=== PATIENT | female | born 1985 | race Caucasian/White ===

== ENCOUNTER 2017-04-23 18:22 | Emergency (ER) | payer MEDICAID ==
[~2017-04-23] VITALS: Ht 154.9 cm; Wt 57.2 kg
[2017-04-23 18:42] VITALS: BP 114/80
[2017-04-23] MEDS ORDERED: IBUPROFEN 400 MG TAB PO ONE (18:50)
[2017-04-23] MEDS ORDERED: IBUPROFEN 400 MG TAB ONE (19:00)
--- NOTE | 2017-04-23 19:53 | NUR ---
PT TAKEN TO BED 4
--- NOTE | 2017-04-23 20:05 | NUR ---
PATIENT PRESENTS TO ED WITH C/O VAGINAL PAIN RIGHT VULVA AREA, AND INSIDE, DRAIN CYST IN [facility]. PT STATES NO MED HX. DENIES N/V/D; SKIN IS PINK/WARM/DRY; AAOX4 WITH EVEN AND STEADY GAIT; LUNGS CLEAR BL; HR EVEN AND REGULAR; PT DENIES ANY FEVER, CP, SOB, OR COUGH AT THIS TIME; PATIENT STATES PAIN OF 7/10 AT THIS TIME; VSS; PATIENT POSITIONED FOR COMFORT; HOB ELEVATED; BEDRAILS UP X2; BED DOWN. ER MD MADE AWARE OF PT STATUS.
--- NOTE | 2017-04-23 20:08 | NUR ---
Female Parts Facilitator (CARLOS EMT) accompanied ER MD for female patient Pelvic Exam.
--- NOTE | 2017-04-23 20:08 | NUR ---
Dr. Quevedo evaluating patient at bedside.
[2017-04-23] MEDS ORDERED: KETOROLAC 30 MG/ML VIAL IM ONE (20:15)
[2017-04-23] MEDS ORDERED: LIDOCAINE OINTMENT 5% 35 GM TUBE TP ONE ×2 (20:15→20:37)
[2017-04-23] MEDS ORDERED: LIDOCAINE 1% 500 MG/50 ML VIAL INJ ONE (21:10)
--- NOTE | 2017-04-23 21:25 | NUR ---
Female Vegetable Sorter (Liz EMT) accompanied ER MD for female patient Pelvic Exam.
[2017-04-23 21:44] VITALS: BP 115/72
--- NOTE | 2017-04-23 21:45 | NUR ---
Patient discharged with v/s stable. Written and verbal after care instructions given and explained. Patient alert, oriented and verbalized understanding of instructions. Ambulatory with steady gait. All questions addressed prior to discharge. ID band removed. Patient advised to follow up with PMD. Rx of CLINDAMYCIN HYDROCHLORIDE, NORCO given. Patient educated on indication of medication including possible reaction and side effects. Opportunity to ask questions provided and answered.
== END 2017-04-23 21:45 | disposition home or self-care (01) ==
LOC: MED 18:22
DX: N75.1 Abscess of Bartholin's gland (principal)
CPT/HCPCS: 56420; 96372; 99283; J1885; J2001

== ENCOUNTER 2017-07-01 09:54 | Emergency (ER) | payer MEDICAID ==
[~2017-07-01] VITALS: Ht 154.9 cm; Wt 59.0 kg
[2017-07-01 10:08] VITALS: BP 128/86
[2017-07-01] MEDS ORDERED: KETOROLAC 60 MG/2 ML VIAL IM ONE (12:10)
[2017-07-01] MEDS ORDERED: oxyCODONE/APAP 5/325 MG 1 TAB TAB PO ONE (12:25)
[2017-07-01] MEDS ORDERED: LIDOCAINE/EPI 1% 1:100000 20 ML VIAL INJ ONE (13:15)
[2017-07-01] MEDS ORDERED: LIDOCAINE/EPI 2% 1:100000 20 ML VIAL INJ ONE (13:25)
[2017-07-01] MEDS ORDERED: LIDOCAINE/PRILOCAINE 2.5% 30 GM TUBE TP ONE (13:31)
[2017-07-01 14:40] VITALS: BP 111/60
== END 2017-07-01 12:40 | disposition home or self-care (01) ==
LOC: MED 09:54
DX: N75.0 Cyst of Bartholin's gland (principal); F41.9 Anxiety disorder, unspecified
CPT/HCPCS: 56420; 99283; J2001